=== PATIENT | male | born 1935 | race Native Hawaiian/Other Pacific Islander ===

== ENCOUNTER 2016-10-29 08:40 | Outpatient (CLI) | payer OTHER, MEDICARE ==
[~2016-10-29 08:40] MED LIST: ALLERGY RELF10 M2 PO; ALLO100T22 PO; CARDURA XL4 MG PO; CLOP75TA2 PO; COLC0.6T6 PO; FLUTICASONE50 MCG; FURO40TA93 PO; GLIP5TAB65 PO; LEVEMIR; LISI5TAB10 PO; LORTAB1 TAB PO; MECLIZINE25 MG OR; UNITH DIRECT50 MCG PO
[2016-10-29 09:22] LABS: PLATELET COUNT 221 K/uL (142-355)
[2016-10-29 09:31] LABS: POTASSIUM 5.3 mmol/L (3.6-5.2)
== END 2016-10-29 23:38 | disposition home or self-care (01) ==
LOC: LABW 08:40
PROVIDERS: Internal Medicine Nephrology
DX: I12.9 Hypertensive chronic kidney disease with stage 1 through stage 4 chronic kidney disease, or unspecified chronic kidney disease (principal); E56.8 Deficiency of other vitamins; N18.4 Chronic kidney disease, stage 4 (severe)
CPT/HCPCS: 36415; 80053; 81000; 82306; 82570; 83970; 84100; 84155; 85027

== ENCOUNTER 2017-01-09 08:44 | Outpatient (CLI) | payer OTHER, MEDICARE | END 2017-01-09 19:06 | disposition home or self-care (01) | LOC: LABW 08:44 | DX: B35.1 Tinea unguium (principal) | CPT/HCPCS: 36415; 84450; 84460 ==

== ENCOUNTER 2017-03-24 08:41 | Outpatient (CLI) | payer OTHER, MEDICARE ==
[2017-03-24 09:13] LABS: PLATELET COUNT 183 K/uL (142-355)
[2017-03-24 12:32] LABS: POTASSIUM 6.2 mmol/L (3.6-5.2)
== END 2017-03-24 19:05 | disposition home or self-care (01) ==
LOC: LABW 08:41
PROVIDERS: Internal Medicine Nephrology
DX: I12.9 Hypertensive chronic kidney disease with stage 1 through stage 4 chronic kidney disease, or unspecified chronic kidney disease (principal); N18.4 Chronic kidney disease, stage 4 (severe); E11.65 Type 2 diabetes mellitus with hyperglycemia
CPT/HCPCS: 36415; 80053; 82306; 83970; 84100; 85027

== ENCOUNTER 2017-04-01 08:46 | Outpatient (CLI) | payer OTHER, MEDICARE ==
[2017-04-01 09:31] LABS: POTASSIUM 4.4 mmol/L (3.6-5.2)
== END 2017-04-01 19:31 | disposition home or self-care (01) ==
LOC: LABW 08:46
PROVIDERS: Internal Medicine Nephrology
DX: N18.4 Chronic kidney disease, stage 4 (severe) (principal)
CPT/HCPCS: 36415; 80048; 83970; 84100

== ENCOUNTER 2017-07-01 09:04 | Outpatient (CLI) | payer OTHER, MEDICARE | END 2017-07-01 19:06 | disposition home or self-care (01) | LOC: LABW 09:04 | PROVIDERS: Internal Medicine Nephrology | DX: N18.4 Chronic kidney disease, stage 4 (severe) (principal) | CPT/HCPCS: 36415; 80048; 83970; 84100 ==

== ENCOUNTER 2017-07-14 08:56 | Outpatient (CLI) | payer OTHER, MEDICARE ==
[2017-07-14 09:17] LABS: PLATELET COUNT 177 K/uL (142-355)
[2017-07-14 09:27] LABS: POTASSIUM 4.8 mmol/L (3.6-5.2)
== END 2017-07-14 19:03 | disposition home or self-care (01) ==
LOC: LABW 08:56
PROVIDERS: Podiatrist
DX: Z01.810 Encounter for preprocedural cardiovascular examination (principal); Z01.811 Encounter for preprocedural respiratory examination; Z01.812 Encounter for preprocedural laboratory examination; R73.09 Other abnormal glucose
CPT/HCPCS: 36415; 80048; 83036; 85027; 93005

== ENCOUNTER 2017-11-06 08:15 | Outpatient (CLI) | payer OTHER, MEDICARE ==
[2017-11-06 08:46] LABS: PLATELET COUNT 214 K/uL (142-355)
[2017-11-06 08:52] LABS: POTASSIUM 5.6 mmol/L (3.6-5.2)
== END 2017-11-06 19:22 | disposition home or self-care (01) ==
LOC: LABW 08:15
PROVIDERS: Internal Medicine Nephrology
DX: N18.4 Chronic kidney disease, stage 4 (severe) (principal); I10 Essential (primary) hypertension
CPT/HCPCS: 36415; 80048; 85027

== ENCOUNTER 2017-11-24 18:20 | Emergency (ER) | payer OTHER, MEDICARE ==
[~2017-11-24] VITALS: Ht 177.8 cm; Wt 108.9 kg
[2017-11-24] MEDS ORDERED: ALLO100T22 PO (20:26)
[2017-11-24] MEDS ORDERED: UNITH DIRECT75 MCG PO (20:27)
[2017-11-24] MEDS ORDERED: CLOP75TA2 PO (20:28)
[2017-11-24] MEDS ORDERED: CALC667T2 PO (20:29)
[2017-11-24 20:56] LABS: PLATELET COUNT 197 K/uL (142-355)
[2017-11-24 21:07] LABS: POTASSIUM 5.1 mmol/L (3.6-5.2)
[2017-11-24 21:35] VITALS: BP 94/62; TEMP 98.3
== END 2017-11-24 21:38 | disposition home or self-care (01) ==
LOC: ED 18:20
DX: N18.9 Chronic kidney disease, unspecified (principal); F03.90 Unspecified dementia, unspecified severity, without behavioral disturbance, psychotic disturbance, mood disturbance, and anxiety; I47.1 Supraventricular tachycardia; I45.81 Long QT syndrome
CPT/HCPCS: 36415; 80053; 81000; 85027; 93005; 99283